=== PATIENT | male | born 1985 | race American Indian/Alaskan Native ===

== ENCOUNTER 2021-08-09 11:24 | Day surgery (SDC) | payer OTHER ==
[2021-08-09] MEDS ORDERED: HYDROmorphone 1 MG/1 ML INJ IV PRN ×2 (11:55)
[2021-08-09] MEDS ORDERED: ONDANSETRON 4 MG/2 ML INJ IV PRN (11:55)
--- NOTE | 2021-08-09 11:56 | Anesthesia Day of Surgery ---
Anesthesia Day of Surgery - Day of Surgery Patient Examined: Yes Patient H&P Reviewed: Yes Patient is NPO: Yes
--- NOTE | 2021-08-09 11:58 | Anesthesia Consultation ---
Anesthesia Consult and Med Hx Date of service: 08/09/21 - Airway Anesthetic Teeth Evaluation: Good (Missing) ROM Head & Neck: Adequate Mental/Hyoid Distance: Adequate Mallampati Class: Class II Intubation Access Assessment: Good - Pre-Operative Health Status ASA Pre-Surgery Classification: ASA2 Proposed Anesthetic Plan: General - Pulmonary Hx Smoking: Yes (CIGARETTES. SMOKE 1 PK/DAY.) Hx Sleep Apnea: No - Central Nervous System Hx Psychiatric Problems: No - Endocrine Hx Insulin Dependent Diabetes: Yes - Other Systems Hx Alcohol Use: No Hx Substance Use: Yes (SMOKES MARIJUANA EVERYDAY) Hx Cancer: No
[2021-08-09] MEDS ORDERED: CELECOXIB 200 MG CAP PO NR (12:00)
[2021-08-09] MEDS ORDERED: MIDAZOLAM 2 MG/2 ML INJ IV NR (12:00)
[2021-08-09] MEDS ORDERED: LACTATED RINGERS 1,000 ML IV SCH (12:00)
[2021-08-09] MEDS ORDERED: propofoL 200 MG/20 ML VIAL IV ONE (12:39)
[2021-08-09] MEDS ORDERED: LIDOCAINE MPF (2%) 20 MG/1 ML VIAL 5 ML ONE (12:39)
[2021-08-09] MEDS ORDERED: fentaNYL 100 MCG/2 ML INJ ONE (12:39)
[2021-08-09] MEDS ORDERED: ePHEDrine SULFATE 50 MG/1 ML INJ ONE (12:39)
[2021-08-09] MEDS ORDERED: INSULIN LISPRO 100 UNIT/ML SUB-Q SCH (12:42)
[2021-08-09] MEDS ORDERED: ACETAMINOPHEN 500 MG TAB PO SCH (13:00)
[2021-08-09] MEDS ORDERED: BUPIVACAINE/PF (0.5%) 5 MG/1 ML 30 ML VIAL INFILTRATI ONE ×2 (13:11→13:52)
[2021-08-09] MEDS ORDERED: LIDOCAINE (1%) 10 MG/1 ML VIAL 20 ML MDV ONE (13:11)
[2021-08-09] MEDS ORDERED: LIDOCAINE 1%/EPINEPHRINE 1:100,000 VIAL (20 ML) INFILTRATI ONE (13:12)
[2021-08-09] MEDS ORDERED: HEPARIN 5,000 UNIT/1 ML VIAL SUB-Q NR (13:15)
[2021-08-09] MEDS ORDERED: MIDAZOLAM 2 MG/2 ML INJ ONE (13:30)
[2021-08-09] MEDS ORDERED: HYDROmorphone 1 MG/1 ML INJ ONE (13:50)
[2021-08-09] MEDS ORDERED: LIDOCAINE/EPI 1% 1:50,000 (OR) 20 ML VIAL INFILTRATI ONE (13:52)
[2021-08-09] MEDS ORDERED: SODIUM CHLORIDE 0.9% IRR 1,500 ML BOTTLE IR ONE (13:52)
[2021-08-09] MEDS ORDERED: ceFAZolin/STERILE WATER 2 GM/20 ML SYRINGE IV NR (14:00)
--- NOTE | 2021-08-09 15:17 | Procedure Note ---
Date of procedure: 08/09/21 Pre-op diagnosis: Left hip mass, 9.5 cm Post-op diagnosis: same (Secondary to an epidermoid cyst) Procedure: Excision of left hip mass, 9.5 cm Description of procedure: Pt was intubated supine on the OR table. Pt was repositioned left side up. Left hip was prepped and draped. An elliptical skin incision was made over the mass. SQ tissue was divided with the Bovie. The mass was an epidermoid cyst, not a lipoma. Once the cyst was excised, hemostas is was obtained with the Bovie. Deep dermis was approximated with interrupted sutures of 3-0 Vicryl. Skin was approximated with a running, subcuticular suture of 4-0 Monocryl. Skin glue was applied followed by a pressure dressing of fluffed 4 X 4's which was secured with Medipore tape. Pt tolerated the procedure well and was taken to PACU in stable condition. Anesthesia: GETA Surgeon: MARLENY CORONADO Estimated blood loss: minimal Pathology: list (Left hip EIC) Specimen disposition: to lab Condition: stable Disposition: PACU
--- NOTE | 2021-08-09 17:25 | Post Anesthesia Evaluation ---
- Post Anesthesia Evaluation Patient Participated: Yes Airway Patent: Yes Stable Respiratory Function: Yes Nausea/Vomiting: No Temp > 96.8F: Yes Pain Manageable: Yes Adequeate Hydration: Yes Anesthesia Complications: No Block Receding Appropriately: Not Applicable Patient on Ventilator: No
[2021-08-09 20:22] VITALS: BP 124/78
== END 2021-08-09 11:25 | disposition home or self-care (01) ==
LOC: OR 11:24
PROVIDERS: ATTEND Surgery
DX: R22.42 Localized swelling, mass and lump, left lower limb (principal); L72.0 Epidermal cyst; E11.9 Type 2 diabetes mellitus without complications; F17.210 Nicotine dependence, cigarettes, uncomplicated; Z79.4 Long term (current) use of insulin; Z79.899 Other long term (current) drug therapy; Z98.890 Other specified postprocedural states
CPT/HCPCS: 11406; 12034; 82962; 88304; J0690; J1170; J1644; J2250; J2704; J3010; J3490; J7120; Q9967; J1815